=== PATIENT | female | born 1985 | race Two or more races ===

== ENCOUNTER 2016-11-05 23:35 | Inpatient (IN) | payer OTHER ==
[2016-11-06 00:26] VITALS: BMI 28.9
[2016-11-06 00:38] LABS: BASOPHIL 0.4 % (0-2.0); EOSINOPHIL 1.2 % (0-4.5); MCHC 33.6 g/dl (32.0-36.0); MEAN CELL VOLUME 92.3 fl (80-96); MEAN PLT VOLUME 8.9 fl (7.5-11.1); NEUTROPHILS 66.5 % (42.8-82.8); PLATELET COUNT 256 K/MM3 (134-434); RDW 13.5 % (11.6-15.6); WHITE BLOOD COUNT 11.9 K/mm3 (4.0-10.0)
[2016-11-06] MEDS ORDERED: DEXTROSE 5%-LACTATED RINGERS 1,000 ML IV SCH (00:45)
[2016-11-06 00:57] LABS: INR 0.95 (0.82-1.09); PROTHROMBIN TIME (PATIENT) 10.4 SEC (9.98-11.88)
[2016-11-06 01:00] LABS: ACTIVATED PTT 27.8 SECONDS (26.9-34.4)
[2016-11-06 01:04] LABS: ANION GAP 11 (8-16); CALCIUM 9.1 mg/dL (8.5-10.1); CO2 24 mmol/L (21-32); CREATININE 0.5 mg/dL (0.55-1.02); GLUCOSE,RANDOM 75 mg/dL (74-106)
[2016-11-06] MEDS ORDERED: BENZOCAINE 28 GM HEMORRHOIDAL OINTMENT TP PRN (01:18)
[2016-11-06] MEDS ORDERED: METHYLERGONOVINE MALEATE 0.2 MG/1 ML AMP IM PRN (01:18)
[2016-11-06] MEDS ORDERED: WITCH HAZEL 50% (TUCKS) 40 PAD/JAR PAD TP PRN (01:18)
[2016-11-06] MEDS ORDERED: BENZOCAINE 20% 57 GM BOTTLE TP PRN (01:18)
[2016-11-06] MEDS ORDERED: oxyCODONE HCL 5 MG TABLET PO PRN (01:18)
[2016-11-06] MEDS ORDERED: BISACODYL 10 MG SUPP.RECT RC PRN (01:18)
--- NOTE | 2016-11-06 01:24 | PN ---
Delivery - Delivery Vaginal Delivery: No Problems Type of Anesthesia: Local Episiotomy/Laceration: 1st degree EBL (cc): 300 Delivery, Single - Stages of Labor Date of Delivery: 11/06/16 Time of Delivery: 01:12 Date Placenta Delivered: 11/06/16 Time Placenta Delivered: Placenta: Yes: Spontaneous - Condition of Sewing Department Supervisor/Nitrating Acid Mixer Present: No Infant Gender: Male Position: Right, OA - 1 Minute Total Score: 9 5 Minutes Total Score: 9 - [place] Feeding Plan Initial Plan: Elected not to breastfeed exclusively throughout hospitalization Remarks - Remarks Remarks: 31 y/o s/p normal of baby boy from LOAN position nuchal cord noted after delivery of head - clamped and cut at perineum anterior shoulder (left) delivered with ease, along with remainder of Apgars 9/9 Placenta delivered spontaneously and in tact 1st degree laceration noted reparied with 3-0 vicryl mom stable baby to well baby nursery sponge and needle count correct after delivery
[2016-11-06] MEDS ORDERED: D5W-LR W/ 20 UNITS OXYTOCIN 1,000 ML IV SCH (01:30)
[2016-11-06] MEDS: IBUPROFEN 600 MG TABLET (FP) PO PRN ×3 (01:45→16:42)
[2016-11-06] MEDS: ACETAMINOPHEN 325 MG TABLET (FP) PO PRN ×3 (01:45→16:43)
[2016-11-06] MEDS ORDERED: TUBERCULIN PPD 5 TU/0.1ML SYRINGE (IN PATIENT USE ONLY) ID ONE (09:00)
[2016-11-06] MEDS: PRENATAL VITAMINS W/ FOLIC ACID TABLET (FP) PO SCH (09:15)
[2016-11-06] MEDS: FERROUS SO4 325 MG TABLET (FP) PO SCH ×2 (09:15→21:34)
[2016-11-07] MEDS: IBUPROFEN 600 MG TABLET (FP) PO PRN ×3 (03:30→21:27)
[2016-11-07] MEDS: ACETAMINOPHEN 325 MG TABLET (FP) PO PRN ×2 (03:31→21:28)
[2016-11-07 07:10] LABS: BASOPHIL 0.6 % (0-2.0); EOSINOPHIL 1.6 % (0-4.5); MCH 30.7 pg (25.7-33.7); MCHC 33.4 g/dl (32.0-36.0); MEAN PLT VOLUME 8.5 fl (7.5-11.1); NEUTROPHILS 61.9 % (42.8-82.8); PLATELET COUNT 260 K/MM3 (134-434); RDW 13.4 % (11.6-15.6)
--- NOTE | 2016-11-07 08:57 | HP ---
Past Medical History - Primary Care Physician PCP:: Sancho Dial - Admission Chief Complaint: 40 weeks, labor History of Present Illness: 31 yo 40 weeks gestation in labor cx 8 cm 100 vx 0 mi, fhr cat 1,regular contraction History Source: Patient Limitations to Obtaining History: No Limitations - Past Medical History ...: 3 ...Para: 1 ...Term: 1 ...: 0 ...Spon : 1 ...Induced : 0 ...Multiple Gestation: 0 ...LMP: 01/31/16 ... Weeks Gestation by Dates: 40.0 ...EDC by Dates: 11/06/16 ...EDC by Sono: 11/06/16 - Past Surgical History Past Surgical History: Yes: None Hx Myomectomy: No Hx Transabdominal Cerclage: No - Smoking History Smoking history: Never smoked Have you smoked in the past 12 months: No - Alcohol/Substance Use Hx Alcohol Use: No History of Substance Use: reports: None - Social History Usual Living Arrangement: Yes: With Spouse ADL: Independent History of Recent Travel: No Home Medications - Allergies Allergies/Adverse Reactions: Allergies Allergy/AdvReac Type Severity Reaction Status Date / Time No Known Allergies Allergy Verified 11/06/16 02:04 - Home Medications Home Medications: Ambulatory Orders Ibuprofen [Motrin -] 600 mg PO QID #28 tablet 11/06/16 Review of Systems - Review of Systems Constitutional: reports: No Symptoms Eyes: reports: No Symptoms HENT: reports: No Symptoms Neck: reports: No Symptoms Cardiovascular: reports: No Symptoms Respiratory: reports: No Symptoms Gastrointestinal: reports: No Symptoms Genitourinary: reports: No Symptoms Musculoskeletal: reports: No Symptoms Integumentary: reports: No Symptoms Neurological: reports: No Symptoms Endocrine: reports: No Symptoms Hematology/Lymphatic: reports: No Symptoms Psychiatric: reports: No Symptoms Physical Exam - Maternity Vital Signs: Vital Signs Temperature 98.8 F 11/07/16 08:10 Pulse Rate 68 11/07/16 08:10 Respiratory Rate 18 11/07/16 08:10 Blood Pressure 109/71 11/07/16 08:10 O2 Sat by Pulse Oximetry (%) 99 11/06/16 03:30 Constitutional: Yes: Well Nourished, No Distress, Calm Eyes: Yes: WNL, Conjunctiva Clear, EOM Intact HENT: Yes: WNL, Atraumatic, Normocephalic Neck: Yes: WNL, Supple, Trachea Midline Cardiovascular: Yes: WNL, Regular Rate and Rhythm Breast(s): Yes: WNL - Abdominal Exam/OB Fundal Height: 40 Number of Fetuses: Single Presentation: Vertex Contractions: Yes Regularity: Regular Intensity: Strong Monitor Mode: External Heart Rate Location: [facility] Category: I Accelerations: Uniform Decelerations: None - Vaginal Exam/OB Vaginal Bleediing: Bloody Show Speculum Exam: No Dilatation (cm): 8 cm Effacement (%): 100 Amniotic Membrane Status: Bulging Presentation: Vertex/Position Station: 0 - Physical Exam Musculoskeletal: Yes: WNL Extremities: Yes: WNL Edema: LLE: Trace, RLE: Trace Deep Tendon Reflex Grade: Normal +2 - Labs Lab Results: CBC, BMP 11/07/16 06:45 11/06/16 00:01 Hemorrhage Risk Assessment - Risk Factors Medium Risk Factors: Yes: None High Risk Factors: Yes: None Risk Score: 1 Risk Level: Medium Risk Problem List - Problems (1) 40 weeks gestation of Code(s): Z3A.40 - 40 WEEKS GESTATION OF (2) Labor established Code(s): JLR2138 - Assessment/Plan admit for vaginal delivery
--- NOTE | 2016-11-07 09:00 | PN ---
Progress Note (short form) - Note Progress Note: ppd 1 doing well, no c/o voids ok abdomen soft, uterus firm,non tender lochia mild , no calf tenderness plan ambulate cbc Problem List - Problems (1) 40 weeks gestation of Code(s): Z3A.40 - 40 WEEKS GESTATION OF (2) Labor established Code(s): [id number] -
[2016-11-07] MEDS: FERROUS SO4 325 MG TABLET (FP) PO SCH ×2 (09:29→21:27)
[2016-11-07] MEDS: PRENATAL VITAMINS W/ FOLIC ACID TABLET (FP) PO SCH (09:29)
[2016-11-07] MEDS ORDERED: SENNOSIDES/DOCUSATE COMBO (SENNA PLUS) TABLET (UD) PO PRN (22:00)
--- NOTE | 2016-11-08 07:41 | DS ---
Physical Exam-FAMILY [employer] MEDIATOR Vital Signs: Vital Signs Temperature 97.9 F 11/07/16 22:00 Pulse Rate 82 11/07/16 22:00 Respiratory Rate 18 11/07/16 22:00 Blood Pressure 135/73 11/07/16 22:00 O2 Sat by Pulse Oximetry (%) 99 11/06/16 03:30 Constitutional: Yes: Well Nourished HENT: Yes: WNL Cardiovascular: Yes: WNL Respiratory: Yes: WNL Gastrointestinal: Yes: WNL ....Post : Yes: Uterus firm, Uterus non-tender Breast(s): Yes: WNL Musculoskeletal: Yes: WNL Extremities: Yes: WNL Edema: No Neurological: Yes: WNL ...Motor Strength: WNL Psychiatric: Yes: WNL Labs: CBC, BMP 11/07/16 06:45 11/06/16 00:01 Delivery - Delivery Vaginal Delivery: No Problems Type of Anesthesia: Local Episiotomy/Laceration: 1st degree EBL (cc): 300 Delivery, Single - Stages of Labor Date 1st Stage Initiatied: 11/05/16 Time 1st Stage Initiated: 22:30 Date 2nd Stage Initiated: 11/06/16 Time 2nd Stage Initiated: 00:51 Date of Delivery: 11/06/16 Time of Delivery: 01:12 Time Placenta Delivered: 01:17 Placenta: Yes: Spontaneous - Condition of Infant Retort Condenser Attendant/Treatment Manager Present: No Gender: Male Weight: 8 lb 1 oz Position: Right, OA Total Hours ROM (Hrs/Mins): 21 MINUTES - 1 Minute Total Score: 9 5 Minutes Total Score: 9 - [place] Feeding Plan Initial Plan: Elected not to breastfeed exclusively throughout hospitalization Discharge Summary Reason For Visit: LABOR ADMIT Current Active Problems 40 weeks gestation of (Acute) Labor established (Acute) Procedures: Principal: Hospital Course: Unremarkable Condition: Good - Instructions Diet, Activity, Other Instructions: regular diet, follow up hrh 4 weeks Referrals: Carolin Diaz MD [Staff Physician] - Disposition: HOME - Home Medications Comprehensive Discharge Medication List: Ambulatory Orders Ibuprofen [Motrin -] 600 mg PO QID #28 tablet 11/06/16
[2016-11-08] MEDS: PRENATAL VITAMINS W/ FOLIC ACID TABLET (FP) PO SCH (09:15)
[2016-11-08] MEDS: FERROUS SO4 325 MG TABLET (FP) PO SCH (09:15)
[2016-11-08 09:53] VITALS: BP 101/66; PULSE 77; TEMP 98
== END 2016-11-08 11:00 | disposition home or self-care (01) | DRG 560 ==
LOC: JDEL 23:35 → JLDR 23:55 → J3W 11-06 03:48
PROVIDERS: ADMIT Obstetrics & Gynecology; ATTEND Obstetrics & Gynecology
PROC: 0HQ9XZZ Repair Perineum Skin, External Approach (ICD-10-PCS; principal; 2016-11-06)
PROC: 10E0XZZ Delivery of Products of Conception, External Approach (ICD-10-PCS; 2016-11-06)
DX: O48.0 Post-term pregnancy (principal); Z3A.40 40 weeks gestation of pregnancy; O70.0 First degree perineal laceration during delivery; Z37.0 Single live birth
CPT/HCPCS: 36415; 59409; 80048; 85025; 85610; 85730; 86593; 86850; 86900; 86901

== ENCOUNTER 2020-11-03 00:28 | Emergency (ER) | payer BC, OTHER ==
[2020-11-03 01:12] VITALS: BMI 27.3
[2020-11-03] MEDS ORDERED: DEXTROSE 5%-LACTATED RINGERS 500 ML IV SCH ×2 (02:45→03:45)
[2020-11-03 06:50] VITALS: BP 108/62; PULSE 81; TEMP 98.3
== END 2020-11-03 06:40 | disposition home or self-care (01) ==
LOC: JER 00:28
DX: O98.511 Other viral diseases complicating pregnancy, first trimester (principal); U07.1 COVID-19; Z3A.12 12 weeks gestation of pregnancy
CPT/HCPCS: 76815; 76817-TC; 99284-25

== ENCOUNTER 2021-01-27 04:35 | Inpatient (IN) | payer BC ==
[2021-01-27] MEDS ORDERED: BISACODYL 10 MG SUPP.RECT RC PRN (05:23)
[2021-01-27] MEDS ORDERED: METHYLERGONOVINE MALEATE 0.2 MG/1 ML AMP IM PRN (05:23)
[2021-01-27] MEDS ORDERED: BENZOCAINE 28 GM HEMORRHOIDAL OINTMENT TP PRN (05:23)
[2021-01-27] MEDS ORDERED: WITCH HAZEL 50% (TUCKS) 40 PAD/JAR PAD TP PRN (05:23)
[2021-01-27] MEDS ORDERED: ACETAMINOPHEN 325 MG TABLET (FP) PO PRN (05:23)
[2021-01-27] MEDS ORDERED: BENZOCAINE 20% 57 GM BOTTLE TP PRN (05:23)
[2021-01-27] MEDS ORDERED: OXYTOCIN 20 UNITS in 0.9% NS 20 UNIT/1,000 ML INFUS.BAG IV SCH (05:30)
[2021-01-27] MEDS ORDERED: IBUPROFEN 600 MG TABLET (FP) PO ONE (06:02)
[2021-01-27] MEDS ORDERED: ACETAMINOPHEN 325 MG TABLET (FP) ONE (06:03)
[2021-01-27] MEDS: IBUPROFEN 600 MG TABLET (FP) PO PRN ×3 (06:05→20:14)
[2021-01-27 06:20] VITALS: BMI 30.1
[2021-01-27 06:28] LABS: BASO % 0.3 % (0-2.0); EOS % 0.4 % (0-4.5); HEMATOCRIT 36.2 % (32.4-45.2); HEMOGLOBIN 12.3 GM/dL (10.7-15.3); LYMPH % 12.8 % (8-40); MCH 31.9 pg (25.7-33.7); MCHC 34.1 g/dl (32.0-36.0); MEAN CELL VOLUME 93.8 fl (80-96); MEAN PLT VOLUME 8.2 fl (7.5-11.1); MONO % 6.7 % (3.8-10.2); NEUT % 79.8 % (42.8-82.8); PLATELET COUNT 218 10^3/uL (134-434); RBC 3.86 M/mm3 (3.60-5.2); RDW 13.6 % (11.6-15.6); WHITE BLOOD COUNT 14.1 K/mm3 (4.0-10.0)
[2021-01-27 06:36] LABS: INR 0.88 (0.83-1.09); PROTHROMBIN TIME (PATIENT) 10.3 SEC (9.7-13.0)
[2021-01-27 06:39] LABS: ACTIVATED PTT 25.2 SECONDS (25.2-36.5)
[2021-01-27 06:42] LABS: CORD HCO3 22.8 mmHg (20-29); CORD PCO2 55.6 mmHg (30-78)
[2021-01-27 06:43] LABS: CORD BASE EXCESS -5.7 mmol/L (0-2); CORD HCO3 21.6 mmHg (20-29); CORD PCO2 48.9 mmHg (30-78); CORD pH 7.264 (7.14-7.44)
[2021-01-27] MEDS ORDERED: OXYTOCIN 10 UNITS/ML VIAL IM ONE (06:45)
[2021-01-27 06:46] LABS: BLOOD UREA NITROGEN 8.2 mg/dL (7-18); CALCIUM 8.7 mg/dL (8.5-10.1)
[2021-01-27 06:50] LABS: CREATININE 0.6 mg/dL (0.55-1.3)
[2021-01-27 07:44] LABS: HIV INTERPRETATION NEGATIVE (NEGATIVE)
[2021-01-27] MEDS: PRENATAL VITAMINS W/ FOLIC ACID TABLET (FP) PO SCH (09:50)
[2021-01-27] MEDS: FERROUS SO4 325 MG TABLET (FP) PO SCH ×2 (09:50→21:28)
[2021-01-28] MEDS: PRENATAL VITAMINS W/ FOLIC ACID TABLET (FP) PO SCH (09:02)
[2021-01-28] MEDS: FERROUS SO4 325 MG TABLET (FP) PO SCH (09:02)
[2021-01-28 09:22] LABS: BASO % 0.5 % (0-2.0); HEMATOCRIT 36.4 % (32.4-45.2); HEMOGLOBIN 12.3 GM/dL (10.7-15.3); LYMPH % 23.8 % (8-40); MCHC 33.8 g/dl (32.0-36.0); MEAN CELL VOLUME 94.7 fl (80-96); MEAN PLT VOLUME 8.6 fl (7.5-11.1); MONO % 7.1 % (3.8-10.2); NEUT % 66.6 % (42.8-82.8); PLATELET COUNT 230 10^3/uL (134-434); RBC 3.85 M/mm3 (3.60-5.2); RDW 13.1 % (11.6-15.6); WHITE BLOOD COUNT 13.8 K/mm3 (4.0-10.0)
[2021-01-28 10:20] VITALS: BP 103/66; PULSE 78; TEMP 98.3
[2021-01-28] MEDS ORDERED: SENNOSIDES/DOCUSATE COMBO (SENNA PLUS) TABLET (UD) PO PRN (22:00)
== END 2021-01-28 14:35 | disposition home or self-care (01) | DRG 807 ==
LOC: JLDR 04:35 → J3W 07:20
PROVIDERS: ADMIT Obstetrics & Gynecology; ATTEND Obstetrics & Gynecology
PROC: 10E0XZZ Delivery of Products of Conception, External Approach (ICD-10-PCS; principal; 2021-01-27)
DX: O80 Encounter for full-term uncomplicated delivery (principal); Z37.0 Single live birth; Z3A.39 39 weeks gestation of pregnancy
CPT/HCPCS: 36415; 36600; 59409; 80048; 82803; 85025; 85610; 85730; 86780; 86850; 86900; 86901; 87389; C9803; U0003; U0005